=== PATIENT | male | born 1970 | race Caucasian/White ===

== ENCOUNTER 2024-04-25 14:34 | Outpatient (CLI) | payer OTHER, SELFPAY ==
--- NOTE | 2024-04-25 15:13 | ECHO_ITS ---
Patient Info Name: Laith Geiger Age: 53 years : 1970 Gender: Male Ht: 72 in Wt: 335 lbs BSA: 2.85 m2 HR: 71 bpm BP: 143 / 87 mmHg Technical Quality: Poor Exam Date: 04/25/2024 3:20 PM Exam Location: Echo Lab Patient Status: Outpatient Admit Date: 04/25/2024 Staff Ordering Physician: Venita Amaro Argon Tester: Mac Churchill RDCS Attending Provider: Ventia Amaro Referring Physician: Prem CLARK; Exam Type: CA echo dop color flow w con Study Info Indications - SOB/CARDIAC MURMUR Complete two-dimensional, color flow and Doppler transthoracic echocardiogram is performed with contrast to opacify the left ventricle and to improve the deliniation of the left ventricle endocardial borders. Contrast/Agitated Saline Contrast/Ag. Saline: Definity Amount: 2.00 ml Existing IV Access: Yes Reason for Poor Study: poor echocardiographic windows Summary 1. Technically suboptimal study due to poor sonographic images. 2. Definity contrast administered improved wall motion interpretation. 3. Left ventricular chamber dimension is normal. 4. Left ventricular systolic function is normal, estimated at 60-65%. 5. There is moderate concentric increased left ventricular wall thickness. 6. The left ventricular diastolic function is grade I diastolic dysfunction. 7. E/e' 5 is not elevated. 8. Left atrial chamber dimension is mildly enlarged. 9. The aortic valve is not well visualized. Cannot determine number of aortic valve leaflets. 10. There is mild aortic valve sclerosis. Left Ventricle Technically suboptimal study due to poor sonographic images. Definity contrast administered improved wall motion interpretation. E/e' 5 is not elevated. Left ventricular chamber dimension is normal. Left ventricular systolic function is normal, estimated at 60-65%. There is moderate concentric increased left ventricular wall thickness. The left ventricular diastolic function is grade I diastolic dysfunction. Right Ventricle Right ventricular systolic function is normal based on normal TAPSE 2.8 cm. Right ventricular chamber dimension is not well visualized. Left Atria Left atrial chamber dimension is mildly enlarged. Right Atria Right atrial chamber dimension is not well visualized. Aortic Valve The aortic valve is not well visualized. Cannot determine number of aortic valve leaflets. There is mild aortic valve sclerosis. There is no aortic valve stenosis. There is no aortic valve regurgitation. Pulmonic Valve There is no pulmonic regurgitation. Mitral Valve There is no mitral valve stenosis. There is no mitral valve regurgitation. Tricuspid Valve There is no tricuspid valve regurgitation. Pericardium/Pleural There is no pericardial effusion. Inferior Vena Cava Normal inferior vena cava with >50% collapse upon inspiration consistent with normal right atrial pressure, 5 mmHg. Aorta The aortic root size at the sinus of Valsalva is normal. Left Ventricular Outflow Tract Name Value Normal LVOT 2D LVOT Diameter 2.28 cm LVOT Doppler LVOT Peak Gradient 5 mmHg LVOT Mean Gradient 3 mmHg LVOT VTI 24.51 cm LVOT VTI/AV VTI Ratio 0.77 LVOT Stroke Volume 99.81 ml LVOT CO 7.18 l/min LVOT CI 2.52 L/min/m2 Pulmonic Valve Name Value Normal RVOT Doppler RVOT Peak Gradient 3 mmHg PV Doppler PV Peak Gradient 5 mmHg Mitral Valve Name Value Normal MV Doppler MV Decel Nuckolls 499.05 cm/s2 MV PHT 0 s MV Area (PHT) 7.00 cm2 4.00-5.00 MV Diastolic Function MV E Peak Velocity 54.12 cm/s MV A Peak Velocity 71.26 cm/s MV E/A 0.76 MV Decel Time 0 s MV Annular TDI MV E/e' (Septal) 6.02 <=8.00 MV E/e' (Lateral) 4.78 <=8.00 MV E/e' (Average) 5.40 Tricuspid Valve Name Value Normal Estimated PAP/RSVP RA Pressure 5 mmHg <=5 Aorta Name Value Normal Ascending Aorta Ao Root Diameter (MM) 4.00 cm Ao Root Diam Index (MM) 1.40 cm/m2 Aortic Valve Name Value Normal AV Doppler AV Peak Velocity 157.14 cm/s AV Peak Gradient 10 mmHg AV Mean Gradient 6 mmHg AV VTI 31.69 cm AV Area (Cont Eq VTI) 3.15 cm2 >=3.00 AV Area (Cont Eq Paul) 2.92 cm2 AV Regurgitation 2D LVOT Area 4.07 cm2 Ventricles Name Value Normal LV Dimensions 2D/MM IVS Diastolic Thickness (2D) 1.57 cm 0.60-1.00 LVID Diastole (2D) 5.46 cm 4.20-5.80 LVIW Diastolic Thickness (2D) 1.67 cm 0.60-1.00 LVID Systole (2D) 3.65 cm 2.50-4.00 LVOT Diameter 2.28 cm LV Mass (2D Cubed) 413.37 g 88.00-224.00 LV Mass Index (2D Cubed) 0.01 g/cm2 0.00-0.01 Relative Wall Thickness (2D) 0.61 LV Fractional Shortening/Ejection Fraction 2D/MM LV Fractional Shortening (2D) 32 % 25-43 LV EF (2D Teicholz) 59 % 52-72 LV Diastolic Volume (4C MOD) 63.84 ml LV EF (4C MOD) 59 % LV Diastolic Volume (2C MOD) 83.88 ml LV EF (2C MOD) 65 % LV Diastolic Volume (BP MOD) 74.49 ml 62.00-150.00 LV Diastolic Volume Index (BP MOD) 0.03 l/m2 0.03-0.07 LV Systolic Volume (BP MOD) 27.79 ml 21.00-61.00 LV Systolic Volume Index (BP MOD) 0.01 l/m2 0.01-0.03 LV EF (BP MOD) 63 % 52-72 LV Diastolic Length (4C) 8.27 cm LV Systolic Length (4C) 6.84 cm LV Stroke Volume (4C MOD) 37.39 ml Atria Name Value Normal LA Dimensions LA Dimension (MM) 3.85 cm 3.00-4.10 Report Signatures
[2024-04-25] MEDS: PERFLUTREN LIPID MICROSPHERES 1.5 ML VIAL DILUTED TO 10 ML TOTAL VOLUME IV PUSH (15:55)
--- NOTE | 2024-04-25 16:25 | IVDEFINITY ---
Prior to administration of IV Definity the patient was educated on the risks and benefits of the imaging enhancing agent including potential adverse side effects. The patient verbalized understanding. Allergies were verified. No exclusion criteria were identified and at least one of the following inclusion criteria were met: 1) physician request, 2) patient technically difficult to image (per the [place] [employer]ocardi[employer] guidelines of two or more segments not discernable within the apical view), or 3) questionable left ventricular function. ?
== END 2024-04-25 14:35 | disposition home or self-care (01) ==
LOC: ANHCARD 14:35
PROVIDERS: PCP Nurse Practitioner Family; Visit Provider Nurse Practitioner Family
DX: R01.1 Cardiac murmur, unspecified (principal); I51.89 Other ill-defined heart diseases; I35.8 Other nonrheumatic aortic valve disorders
CPT/HCPCS: C8929; Q9957

== ENCOUNTER 2024-06-14 00:11 | Day surgery (SDC) | payer OTHER, SELFPAY ==
[2024-06-05 09:04] VITALS: BMI 46.0
[2024-06-14 08:47] VITALS: BP 161/89; PULSE 77; RESP 20; TEMP 35.9; O2SAT 99; BMI 46.5
[2024-06-14] MEDS: LACTATED RINGERS 1,000 ML 150 ML IV CONT (08:59)
--- NOTE | 2024-06-14 09:13 | PM.HPGS ---
History of Present Illness History of Present Illness Consent: Risks, benefits, and alternatives have been discussed and questions answered. Patient agrees to proceed with procedure. Chief complaint: screening malignat neoplasm colon Narrative: Laith Geiger is a 53 year old male here for first screening colonoscopy Review of Systems Review of Systems: All systems reviewed & are unremarkable except as noted in HPI and below PMFSH Past Medical History Medical History (Updated 06/14/24 @ 09:13 by Jonny Mansfield MD) Colon cancer screening Hypertension Dyslipidemia Insomnia Surgical History Surgical History History of skin surgery (2021) front of head; misdiagnosed with melanoma Family History Family History Father Alcoholism Hypertension Mother Depression Diabetes mellitus Hypertension Sibling Diabetes mellitus Alcoholism Hypertension Depression Grandparent Heart disease Hypertension Social History Social History Social History: 03/25/24 very confident with medical forms Smoking status: Never smoker Alcohol intake: current Drinks per week: 7 Alcohol use details: bourbon/wine Substance use: never Substance use type: does not use Do You Feel Safe in your Home?: Yes Lack of Transportation: No Lack of Food: Never True Current Housing: I Have Housing Concerned About Future Housing: No Difficulty Paying Gas/Electric Bills: No Difficulty Paying for Meds: No Currently Unemployed: No Education: High School Diploma/GED Difficulty w/ Childcare or Family Care: No Living arrangements: with family Occupation/Education: occupation 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 Agree to blood products: No Meds Home Medications and Allergies Home Medications ?Medication ?Instructions ?Recorded ?Confirmed ?Type amlodipine 5 mg tablet See Rx Instructions .Route 05/29/24 06/14/24 Rx .COMPLEX #90 tabs olmesartan 20 See Rx Instructions .Route 05/29/24 06/14/24 Rx mg-hydrochlorothiazide 12.5 mg .COMPLEX #90 tabs tablet Blood flow 7 (nitric oxide) 1 tablet BYMOUTH DAILY 06/05/24 06/14/24 History Unknown Medication See Rx Instructions .Route .COMPLEX 06/05/24 06/05/24 History calcium phosphate,dibasic 77 1 tablet PO DAILY 06/05/24 06/14/24 History mg-vitamin D3 400 unit tablet tirzepatide (weight loss) 2.5 2.5 mg subcut WEEKLY 06/05/24 06/05/24 History mg/0.5 mL subcutaneous pen injector Allergies Allergy/AdvReac Type Severity Reaction Status Date / Time amoxicillin (From Amoxil) Allergy Unknown shortness Verified 06/14/24 08:45 of breath Penicillins Allergy Unknown lung Verified 06/14/24 08:45 swelling levofloxacin (From Levaquin) Allergy Unknown Verified 06/14/24 08:45 Vital Signs Vital Signs - 24 hr 06/14/24 08:47 Temperature 96.7 F L Pulse Rate 77 Respiratory Rate 20 Blood Pressure 161/89 H Pulse Oximetry 99 Oxygen Delivery Room Air Exam Const: General: comfortable and no acute distress Nutritional Appearance: obese Orientation/consciousness: patient oriented x3 HENMT: Face/Nose/Sinus: Normal nares present Eyes: General: appearance normal, both eyes and all related structures Neck: Neck: no JVD Resp: Auscultation: clear to auscultation bilaterally Cardio: Rate: regular rate Rhythm: regular rhythm GI: Inspection: non-distended GI Palp: Yes Soft to palpation Skin: General skin exam: normal color Neuro: General: gait normal Speech: normal speech Extrem: General: normal to inspection Psych: Mental Status: mental status grossly normal Assessment and Plan Assessment and plan (1) Colon cancer screening: Code(s): Z12.11 - Encounter for screening for malignant neoplasm of colon Status: Acute Assessment and Plan: colonoscopy
--- NOTE | 2024-06-14 09:16 | WPDANESEPPF ---
Anes - Initial Pre Proc Eval Procedure: Operation Date: 06/14/24 10:00 Proposed Procedures p Screening Colonoscopy - Jonny Mansfield MD Date/Time: 06/14/24 09:16 Surgeon: Jonny Mansfield MD Pre Op Diagnosis: screening malignat neoplasm colon Patient Data Age: 53 Gender: M Height: 1.8 m Weight: 151.4 kg Last Vital Signs Temp 96.7 F L 06/14/24 08:47 Pulse 77 06/14/24 08:47 Resp 20 06/14/24 08:47 BP 161/89 H 06/14/24 08:47 Pulse Ox 99 06/14/24 08:47 O2 Del Method Room Air 06/14/24 08:47 Allergies Allergy/AdvReac Type Severity Reaction Status Date / Time amoxicillin (From Amoxil) Allergy Unknown shortness Verified 06/14/24 08:45 of breath Penicillins Allergy Unknown lung Verified 06/14/24 08:45 swelling levofloxacin (From Levaquin) Allergy Unknown Verified 06/14/24 08:45 Home Medications ?Medication ?Instructions ?Recorded ?Confirmed ?Type amlodipine 5 mg tablet See Rx Instructions .Route 05/29/24 06/14/24 Rx .COMPLEX #90 tabs olmesartan 20 See Rx Instructions .Route 05/29/24 06/14/24 Rx mg-hydrochlorothiazide 12.5 mg .COMPLEX #90 tabs tablet Blood flow 7 (nitric oxide) 1 tablet BYMOUTH DAILY 06/05/24 06/14/24 History Unknown Medication See Rx Instructions .Route .COMPLEX 06/05/24 06/05/24 History calcium phosphate,dibasic 77 1 tablet PO DAILY 06/05/24 06/14/24 History mg-vitamin D3 400 unit tablet tirzepatide (weight loss) 2.5 2.5 mg subcut WEEKLY 06/05/24 06/05/24 History mg/0.5 mL subcutaneous pen injector Patient hx anesthesia problems: none Family hx anesthesia problems: none Results Review: All pre-operative results and documents have been reviewed as part of the pre-operative evaluation. [facility] Past Medical History Medical History Colon cancer screening Hypertension Dyslipidemia Insomnia Surgical History Surgical History History of skin surgery (2021) front of head; misdiagnosed with melanoma Family History Family History Father Alcoholism Hypertension Mother Depression Diabetes mellitus Hypertension Sibling Diabetes mellitus Alcoholism Hypertension Depression Grandparent Heart disease Hypertension Social History Social History Social History: 03/25/24 very confident with medical forms Smoking status: Never smoker Alcohol intake: current Drinks per week: 7 Alcohol use details: bourbon/wine Substance use: never Substance use type: does not use Do You Feel Safe in your Home?: Yes Lack of Transportation: No Lack of Food: Never True Current Housing: I Have Housing Concerned About Future Housing: No Difficulty Paying Gas/Electric Bills: No Difficulty Paying for Meds: No Currently Unemployed: No Education: High School Diploma/GED Difficulty w/ Childcare or Family Care: No Living arrangements: with family Occupation/Education: occupation 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 HTN, hyperlipidemia, sleep study pending. Pt has been off GLP1 since 05/14. Informed Consent: The patient's anesthetic plan and its attendant risks and benefits were discussed with the patient/family/POA. Questions were solicited and answers provided to the satisfaction of the patient/family/POA.
[2024-06-14 09:33] VITALS: BP 112/68; PULSE 76; RESP 22; O2SAT 97
[2024-06-14 09:43] VITALS: BP 100/62; PULSE 60; RESP 18; O2SAT 98
[2024-06-14 09:53] VITALS: BP 111/78; PULSE 65; RESP 18; O2SAT 98
== END 2024-06-14 10:05 | disposition home or self-care (01) ==
PROVIDERS: PCP Nurse Practitioner Family; Visit Provider Internal Medicine Gastroenterology
PROC: 0DJD8ZZ Inspection of Lower Intestinal Tract, Via Natural or Artificial Opening Endoscopic (ICD-10-PCS; CPT 45378; principal; 2024-06-14 10:00)
DX: Z12.11 Encounter for screening for malignant neoplasm of colon (principal); D12.4 Benign neoplasm of descending colon; K64.8 Other hemorrhoids; I10 Essential (primary) hypertension; E78.5 Hyperlipidemia, unspecified; G47.00 Insomnia, unspecified; E66.01 Morbid (severe) obesity due to excess calories; Z68.42 Body mass index [BMI] 45.0-49.9, adult; Z79.85 Long-term (current) use of injectable non-insulin antidiabetic drugs; Z98.890 Other specified postprocedural states; Z82.49 Family history of ischemic heart disease and other diseases of the circulatory system
CPT/HCPCS: 45385; 88305; J2003; J2704; J7120

== ENCOUNTER 2024-07-14 16:49 | Emergency (ER) | payer OTHER, SELFPAY ==
--- OUTSIDE RECORDS SUMMARY | 2024-07-14 17:00 | XMS_ITS | Clinical Summary ---
Author Organization [facility] Address [address] [address] Care Team Providers Care Physician Assistant Name Role Phone Alfonso Cortez MD Primary Care Provider [phone] Source Comments [facility],non-owned Affiliates and Associated Physician Practices is amultiple site organization consisting of ambulatory clinics and hospital sitesin [place], [place], [place] and [place]. This disclosure is being madepursuant to the Care Everywhere program and may not contain all information available regarding this patient. Last updated 18.[facility] Allergies Active Allergy Reactions Criticality Noted Date Comments Penicillins Anaphylaxis High 08/09/2021 Sulfa Drugs Anaphylaxis,Rash High 08/23/2021 Medications * Be aware that medications may not be up to date on this document. Alwaysverify current medications with the patient. Medication Sig Dispensed Refills Start Date End Date Status amLODIPine (NORVASC) 5 MG tablet Take 5 mg by mouth once daily 02/24/2021 Active clotrimazole-betameth asone (LOTRISONE) 1-0.05 % cream APPLY TOPICALLY TO THE AFFECTED AREA TWICE DAILY 02/24/2021 Active olmesartan-hydroCHLOR Othiazide (BENICAR HCT) 20-12.5 MG tablet Take 1 tablet by mouth once daily 02/24/2021 Active traZODone (DESYREL) 100 MG tablet Take 100 mg by mouth at bedtime 02/24/2021 Active baclofen (LIORESAL) 10 MG tablet TAKE 1 TABLET BY MOUTH THREE TIMES DAILY FOR SPASMS 12/25/2020 Active metroNIDAZOLE (FLAGYL) 500 MG tablet Take 500 mg by mouth 3 times daily For 7 days. 01/08/2021 Active predniSONE (DELTASONE) 10 MG tablet 12/25/2020 Active traMADol (ULTRAM) 50 MG tablet TAKE 1 TABLET BY MOUTH THREE TIMES DAILY NEEDED FOR SEVERE PAIN 12/25/2020 Active Active Problems Problem Noted Date Diagnosed Date Basal cell carcinoma (BCC) of scalp 08/09/2021 Family History Medical History Relation Name Comments Diabetes - Type 2 Mother Cancer - Breast Sister 1 Diabetes - Type 2 Sister 2 Relation Name Status Comments Mother Sister 1 Sister 2 Social History Tobacco Use Types Packs/Day Years Used Date Smoking Tobacco: Never Smokeless Tobacco: Never Tobacco Cessation:Counseling Given: No Alcohol Use Standard Drinks/Week Comments Yes 0 (1 standard drink = 0.6 oz pur e alcohol) socially Sex and Gender Information Value Date Recorded Sex Assigned at Not on file Gender Identity Not on file Sexual Orientation Not on file Last Filed Vital Signs Vital Sign Reading Time Taken Comments Blood Pressure 149/89 02/28/2022 9:50 AM CDT Pulse 64 02/28/2022 9:50 AM CDT Temperature 36.8 C (98.2 F) 09/06/2021 9:23 AM CDT Respiratory Rate - - Oxygen Saturation 99% 02/28/2022 9:50 AM CDT Inhaled Oxygen Concentration - - Weight 149.2 kg (329 lb) 02/28/2022 9:50 AM CDT Height 182.9 cm (6') 02/28/2022 9:50 AM CDT Body Mass Index 44.62 02/28/2022 9:50 AM CDT Plan of Treatment Health Maintenance Due Date Last Done Comments COLOGUARD (AGES 45-75) - COL ON CA SCREENING 1970 COLON MONITORING 1970 COLONOSCOPY - COLON CA SCREENING 1970 CT COLONOGRAPHY - COLON CA SCREENING 1970 Colorectal Cancer Screening 1970 FIT - COLON CA SCREENING 1970 FLEX SIG - COLON CA SCREENING 1970 LIPID TESTING 1970 HIV SCREENING 10/20/1987 HEPATITIS C SCREENING 10/15/1990 DTAP/TDAP/TD VACCINES (1 - Tdap) 10/20/1991 HEPATITIS B VACCINE (1 of 3 - 19+ 3-dose series) 10/20/1991 PNEUMOCOCCAL VACCINE 50+ (1 of 1 - PCV) 2022 ZOSTER VACCINE (1 of 2) 2022 COVID-19 VACCINE (1 - 2023-2 5 season) 2024 INFLUENZA VACCINE (#1) 2024 DEPRESSION SCREENING 05/22/2024 SCREENING FOR DIABETES 08/09/2024 08/09/2021 HIB VACCINE Aged Out No longer eligi ble based on patient's age to complete this topic HPV VACCINE Aged Out No longer eligi ble based on patient's age to complete this topic MENINGOCOCCAL (Group B) VACCINE Aged Out No longer eligible based on patient's age to complete this topic MENINGOCOCCAL VACCINE Aged Out No jos solo eligible based on patient's age to complete this topic PNEUMOCOCCAL VACCINE Aged Out No long er eligible based on patient's age to complete this topic Procedures Procedure Name Priority Date/Time Associated Diagnosis Comments COMPREHENSIVE METABOLIC PANEL 08/09/2021 10:18 AM CDT from Last 3 Months or Most Recently Relevant to Health Maintenance Results * (ABNORMAL) COMPREHENSIVE METABOLIC PANEL (08/09/2021 10:18 AM CDT) Glucose 101(H) 65 - 99 mg/dL [facility] INSURANCE BILL BUN 15 6 - 24 mg/dL [facility]UR[facility] BILL Creatinine 0.86 0.76 - 1.27 mg/dL [facility] INSURANCE BILL eGFR by CKD-EPI 107 >59 mL/min/1.7 3 [facility] INSURANCE BILL BUN/Creatinine Ratio 17 9 - 20 [facility] INSURANCE BILL Sodium 142 134 - 144 mmol/L [facility] INSURANCE BILL Potassium 4.3 3.5 - 5.2 mmol/L [facility] INSURANCE BILL Chloride 103 96 - 106 mmol/L [facility] INSURANCE BILL CO2 23 20 - 29 mmol/L [facility] INSURANCE BILL Calcium 9.5 8.7 - 10.2 mg/dL [facility] INSURANCE BILL Protein Total 7.0 6.0 - 8.5 g/dL [facility] INSURANCE BILL Albumin 4.7 4.0 - 5.0 g/dL [facility] INSURANCE BILL Globulin Total 2.3 1.5 - 4.5 g/dL [facility] INSURANCE BILL Albumin/Globulin Ratio 2.0 1.2 - 2.2 [facility] INSURANCE BILL Bilirubin Total 0.7 0.0 - 1.2 mg/dL [facility] INSURANCE BILL Alkaline Phosphatase 74 44 - 121 IU/L [facility] INSURANCE BILL AST 19 0 - 40 IU/L [facility] INSURANCE BILL ALT 26 0 - 44 IU/L [facility] INSURANCE BILL 08/09/2021 10:1 8 AM CDT 08/09/2021 Narrative Resulting Agency Comment Lab Testing performed at: [facility] [place] [address] [id number] Ramin Mcgowan MD LAB - CHEMISTRY RACHANA HARRIS [facility] INSURANCE BILL [address] [place] [address] from Last 3 Months or Most Recently Relevant to Health Maintenance Care Teams Physician Assistant Relationship Specialty Start Date End Date Alfonso Cortez MD [facility] [place] [address] [place] [id number] PCP - General Internal Medicine 08/09/21
--- OUTSIDE RECORDS SUMMARY | 2024-07-14 17:00 | XMS_ITS | Continuity of Care Document ---
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 Role Phone Evelyn DIETZ, Lanette Unavailable Unavailable Allergies, Adverse Reactions, Alerts Substance Reaction Status Criticality TAPE, OCCLUSIVE ADHESIVE Active No Information Medications Medication Instructions Dosage Effective Dates (start - stop) Status Comments ursodiol 300 mg capsule TAKE 1 CAPSULE BY ORAL ROUTE 2 TIMES EVERY DAY 300 MG - Active nystatin 100,000 unit/gram topical powder apply by topical route 2 times every day to the affected area(s) 0.00 - Active Lomaira 8 mg tablet take 1 tablet by oral route every day 1/2 hour before meals 8 MG - No Longer Active Procedures Procedure Date OFFICE/OUTPT EM EST DETAILED/MODERATE 25 MINS OFFICE/OUTPT EM EST EXP PROB FOCUS/LOW 1 5 MINS OFFICE/OUTPT EM EST DETAILED/MODERATE 25 MINS IMMUNIZATION ADMIN SUBQ/IM 1 VACCINE Feb OFFICE/OUTPT EM EST DETAILED/MODERATE 25 MINS INFLUENZA VACCINE CELL CULT PRSRV FREE I M OFFICE/OUTPT EM EST DETAILED/MODERATE 25 MINS OFFICE/OUTPT EM EST DETAILED/MODERATE 25 MINS OFFICE/OUTPT EM EST EXP PROB FOCUS/LOW 1 5 MINS ABSCESS DRAIN INCISE COMPLICATED/MULTIPL E OFFICE/OUTPT EM EST DETAILED/MODERATE 25 MINS OFFICE/OUTPT EM EST DETAILED/MODERATE 25 MINS OFFICE/OUTPT EM EST DETAILED/MODERATE 25 MINS ECHO TRANSTHORACIC R-T 2D COMP W/DOP&COL OR FLOW ELECTROCARDIOGRAM COMPLETE W/ PHYS INTER P & REPORT OFFICE/OUTPT CONSULT EM COMPREH/HIGH 80 MINS Advance Directives Directive Yes / No Effective Date File Name No Information Encounters Encounter Description Practice Location Reason(s) For Visit Diagnoses Date Provider Providers Copied on Encounter OFFICE/OUTPT EM EST DETAILED/MOD ERATE 25 MINS [id number] - [employer], [address] [facility] [address], [place], [address], tel: [phone] [facility] Evie Beata 2 Obesity (chief complaint) Hypertensi on (chief complaint) Metabolic syndromeEssential (primary) hypertensionHyper glycemiaMixed hyperlipidemiaFat ty liverObstructive sleep apneaMixed disorder as reaction to stressElectrolyte and fluid disorderObesity, Class III, BMI 40-49.9 (morbid obesity)Dietary counseling and surveillanceExerc ise counselingEncount er for long-term (current) use of medicationsBody mass index (BMI) 40.0-44.9, adult 7 Evelyn Gama. [address] [facility] [address], [place], [place], [address]. [phone] Referring Provider: Lanette Carrillo, [address] [facility] [address], [place], [address] . tel:[phone] [id number] - [employer], [address] [facility] [address], [place], [address], tel: [phone] [facility] Evie Beata 2 No Information 7 Evelyn Gama. [address] [facility] [address], [place], [place], [address]. tel:[phone] OFFICE/OUTPT EM EST EXP PROB FOCUS/LOW 15 MINS [id number] - [place] [employer], [address] [facility] [address], [place], [address], tel: [phone] P[facility] Evie Beata 2 Obesity (chief complaint) Hypertensi on (chief complaint) Metabolic syndromeRashEssen tial (primary) hypertensionHyper glycemiaMixed hyperlipidemiaFat ty liverObstructive sleep apneaPlantar fasciitis of right footMixed disorder as reaction to stressElectrolyte and fluid disorderObesity, Class III, BMI 40-49.9 (morbid obesity)Body mass index (BMI) 40.0-44.9, adultDietary counseling and surveillanceExerc ise counselingEncount er for long-term current use of medication Evelyn Gama. [address] [address], [place], [place], [id number]. [phone] Referring Provider: Lanette Carrillo, [address] [address], [place], [address] . tel:[phone] OFFICE/OUTPT EM EST DETAILED/MOD ERATE 25 MINS [id number] - [facility] [email or web address], [address] [facility] [address], [place], [address], tel: [phone] PMS Evie Beata 2 Obesity (chief complaint) Hypertensi on (chief complaint) Body mass index (BMI) 40.0-44.9, adultDietary counseling and surveillanceElect rolyte and fluid disorderEssential (primary) hypertensionExerc ise counselingFatty liverHyperglycemi aMetabolic syndromeMixed disorder as reaction to stressMixed hyperlipidemiaObe sity, Class III, BMI 40-49.9 (morbid obesity)Obstructi ve sleep apneaPlantar fasciitis of right footEncounter for long-term current use of medicationRash 6 Evelyn Gama. [address] [facility] [address], [place], [place], [id number]. tel:[phone] Referring Provider: Lanette Carrillo, [address], [place], [address] . tel:[phone] OFFICE/OUTPT EM EST DETAILED/MOD ERATE 25 MINS [id number] - [facility], [address] [facility] [address], [place], [address], tel: [phone] [facility] Evie Beata 2 Obesity (chief complaint) Dietary counseling and surveillanceElect rolyte and fluid disorderEssential (primary) hypertensionExerc ise counselingFatty liverHyperglycemi aMetabolic syndromeMixed disorder as reaction to stressMixed hyperlipidemiaObs tructive sleep apneaOther intermediate teacher (current) drug therapyBody mass index (BMI) 40.0-44.9, adultPlantar fasciitis of right footObesity, Class III, BMI 40-49.9 (morbid obesity)Influenza vaccination administered at current visit 6 Evelyn Gama. [address] [address], [place], [place], [id number]. tel:[phone] Referring Provider: Lanette Carrillo, [address] [address], [place], [address] . tel:[phone] OFFICE/OUTPT EM EST DETAILED/MOD ERATE 25 MINS [id number] - [facility] [employer], [address] [facility] [address], [place], [address], tel: [phone] [facility] Evie Beata 2 Obesity (chief complaint) hypertensi on (chief complaint) Body mass index (BMI) 38.0-38.9, adultMetabolic syndromeFatty liverEssential hypertensionMixed hyperlipidemiaObs tructive sleep apneaElectrolyte and fluid disorderDietary counseling and surveillanceExerc ise counseling 6 Evelyn Gama. [address] [facility] [address], [place], [place], [address]. [phone] Referring Provider: Lanette Carrillo, [address] [facility] [address], [place], [address] . tel:[phone] OFFICE/OUTPT EM EST DETAILED/MOD ERATE 25 MINS [id number] - [facility] [email or web address], [address] [facility] [address], [place], [address], [place] tel:[phone] PMS Evie Beata 2 Obesity (chief complaint) hypertensi on (chief complaint) Body mass index (BMI) 39.0-39.9, adultMetabolic disorderHyperglyc emiaFatty liverMixed hyperlipidemiaEss ential (primary) hypertensionObesi ty, Class II, BMI 35.0-39.9, with comorbidity (see actual BMI)Dietary counselingExercis e counselingElectro lyte and fluid disorder 9-201 6 Leloshy Lanette. [address] [facility], [place], [place], [address]. tel:[phone] Referring Provider: Lanette Carrillo, [facility] [address] [address], [place], [address] . tel:[phone] OFFICE/OUTPT EM EST EXP PROB FOCUS/LOW 15 MINS [id number] - [place] [email or web address], [address] [facility] [address], [place], [address], [phone] PMS Evie Beata 2 skin lesion (chief complaint) Cutaneous abscess of back excluding buttocksCelluliti s of back except buttockBody mass index (BMI) 39.0-39.9, adult -201 6 Desiraerocky Marre[employer]so[employer]ail. [address] [facility], [place], [place], [address]. tel:[phone] Referring Provider: Lanette Carrillo, [address] [facility] [address], [place], [address] . tel:[phone] OFFICE/OUTPT EM EST DETAILED/MOD ERATE 25 MINS [id number] - [facility], [address] [facility] [address], [place], [address], [place] [phone] PMS Evie Beata 2 obesity (chief complaint) skin lesion (chief complaint) Mixed hyperlipidemiaFat ty liver disease, nonalcoholicOther disorders of electrolyte and fluid balance, not elsewhere classifiedObesity (BMI 35.0-39.9 without comorbidity)Dieta ry counseling and surveillanceExerc ise counselingBody mass index (BMI) 39.0-39.9, adultHyperglycemi aMetabolic syndromeCutaneous abscess of back excluding buttocks 6 Evelyn Gama. [address] [facility] [address], [place], [place], [address]. [phone] Referring Provider: Lanette Carrillo, [address] [facility] [address], [place], [address] . tel:[phone] OFFICE/OUTPT EM EST DETAILED/MOD ERATE 25 MINS [id number] - [facility] [email or web address], [address] [facility] [address], [place], [address], [place] tel: [phone] PMS Evie Beata 2 Obesity (chief complaint) Insulin resistanceDietary surveillance and counselingExercis e counselingFatty liver disease, nonalcoholicMetab olic disorderMixed hyperlipidemiaOth disorders of electrolyte and fluid balance, NECBody mass index (BMI) 39.0-39.9, adultObesity, Class II, BMI 35-39.9 6 Clarence Ramirez. [address] [facility] [address], [place], [place], [address]. tel:[phone] Referring Provider: Ashley Curran, [address] [facility] [address], [place], [address] . tel:[phone] OFFICE/OUTPT EM EST DETAILED/MOD ERATE 25 MINS [id number] - [employer], [address] [facility] [address], [place], [address], [place] tel: [phone] PMS Evie Beata 2 obesity (chief complaint) hypertensi on (chief complaint) Body mass index (BMI) 40.0-44.9, adultMetabolic syndromeEssential (primary) hypertensionMixed hyperlipidemiaAbn ormal finding on EKGMixed disorder as reaction to stressElectrolyte and fluid disorderObesity, Class III, BMI 40-49.9 (morbid obesity)Dietary counseling and surveillanceExerc ise counselingFatty liver 6 Evelyn Marrerosohail. [address] [address], [place], [place], [address]. [phone] Referring Provider: Lanette Carrillo, [facility] [address] [address], [place], [address] . tel:[phone] [id number] - [facility] [employer], [address], [address], tel: [phone] [facility] No Information [address] [facility], [address], [place], [place], [address]. [phone] Referring Provider: Lanette Carrillo, [facility] [address] [address], [place], [address] . tel:[phone] OFFICE/OUTPT CONSULT EM COMPREH/HIGH 80 MINS [id number] - [place] [facility] [employer], [address] [address], [place], [address], [place] tel: [phone] [facility] Evie Beata 2 obesity (chief complaint) Body mass index (BMI) 40.0-44.9, adultElectrolyte and fluid disorderObesity, Class III, BMI 40-49.9 (morbid obesity)Dietary counseling and surveillanceExerc ise counselingOther assisted (current) drug therapyMetabolic syndromeEssential hypertensionMixed hyperlipidemiaAbn ormal finding on EKGObstructive sleep apneaMixed disorder as reaction to stress 6 Desiraerocky Lanette. [address] [address], [place], [place], [address]. tel:[phone] Referring Provider: Ashley Curran, [facility] [address] [address], [place], [address] . tel:[phone] Family History Family Member Type Diagnosis Age At Onset Paternal grandfather Problem (finding) prostate cancer Mother Problem (finding) raised blood lipids Mother Problem (finding) Obesity Brother Problem (finding) hypertension Mother Problem (finding) depression Father Problem (finding) alcoholism Maternal grandmother Problem (finding) raised blood li pids Sister Problem (finding) raised blood lipids Father Problem (finding) stroke Sister Problem (finding) Obesity Paternal grandmother Problem (finding) alzheimer's dis ease Paternal grandmother Problem (finding) hypertension Father Problem (finding) coronary arterioscleros is Brother Problem (finding) raised blood lipids Father Problem (finding) hypertension Mother Problem (finding) hypertension Immunizations Vaccine Date Status Comments Influenza, injectable, MDCK, preservative free Flucelvax administered Source: New Immuniza tion Record Payers Payer name Insurance type Covered libertarian ID Authoriza tion(s) [facility] CI [id number] [facility] CI [id number] Social History Type Description Quantity Date Captured Comments Alcohol Use Details beer & wine 2 drinks weekly 7 Caffeine Use Details No Tobacco Use Status Never smoked tobacco 2016 Smoking Status Never smoker Non-Smoking Tobacco Use Details : No Details Available : No Details Available Sex Male Chief Complaint And Reason For Visit From encounter dated '08/05/2016 08:30'. Obesity (chief complaint). Description: , Date of First Bariatric Visit: 12/28/2015. The severity of the problem is moderate. The patient is losing weight. Risk factors include annual weight gain of > 2 lbs (1kg) / year and socioeconomic status. Associated conditions include hyperlipidemia, hypertension, sleep apnea, , and hyperglycemia. Aggravating factors include high fat diet and stress. Symptoms are not relieved by diet(s) and exercise. Associated symptoms include anorexia, anxiety,cold intolerance, generalized weakness and striae. Pertinent negatives include abdominal pain, anhidrosis, constipation, depression, delayed development, facial plethora, fatigue, hair loss, headache, hirsutism, hoarseness, lethargy, low self-esteem, paresthesias or vision changes. Additional information: See attached symptom sheet. Hypertension (chief complaint). Description: The symptoms began gradually. The severity has been described as being 5. Risk factors include family history HTN, gout or CAD, male gender, obesity and sleep apnea. The hypertension is exacerbated by anxiety and stress. Pertinent negatives include chestpain, claudication, diaphoresis, dyspnea, fatigue, headache, hematuria, irregular heartbeat/palpitations, nausea, transient weakness and vomiting. Reason For Referral Reason For Referral No Information Plan Of Treatment Date Type Action Status Patient Education Body Mass Index: Care I nstructions completed Patient Education Body Mass Index: Care I nstructions completed Patient Education Body Mass Index: Care I nstructions completed Patient Education Body Mass Index: Care I nstructions completed Patient Education Diet and Exercise for Roro Christiero completed Patient Education Diet and Exercise for Roro torresboalisha Syndro completed Patient Education Diet and Exercise for Roro torresboalisha Christiero completed History Of Present Illness Encounter Date Complaint History Of Prese nt Illness Obesity (comments) Pt has gained 7 lbs since his last visit. Hypertension (comments) BP has i ncreased since his last visit. Obesity , Date of First Bariatric Visit: 12/28/2015. The severity of the problem is moderate. The patient is losing weight. Risk factors include annual weight gain of > 2 lbs (1kg) / year and socioeconomic status. Associated conditions include hyperlipidemia, hypertension, sleep apnea, , and hyperglycemia. Aggravating factors include high fat diet and stress. Symptoms are not relieved by diet(s) and exercise. Associated symptoms include anorexia, anxiety, cold intolerance, generalized weakness and striae. Pertinent negatives include abdominal pain, anhidrosis, constipation, depression, delayed development, facial plethora, fatigue, hair loss, headache, hirsutism, hoarseness, lethargy, low self-esteem, paresthesias or vision changes. Additional information: See attached symptom sheet. Hypertension The symptoms beg an gradually. The severity has been described as being 5. Risk factors include family history HTN, gout or CAD, male gender, obesity and sleep apnea. The hypertension is exacerbated by anxiety and stress. Pertinent negatives include chest pain, claudication, diaphoresis, dyspnea, fatigue, headache, hematuria, irregular heartbeat/palpitations, nausea, transient weakness and vomiting. Obesity , Date of First Bariatric Visit: 12/28/2015. The severity of the problem is moderate. The patient is losing weight. Risk factors include annual weight gain of > 2 lbs (1kg) / year and socioeconomic status. Associated conditions include hyperlipidemia, hypertension, sleep apnea, , and hyperglycemia. Aggravating factors include high fat diet and stress. Symptoms are not relieved by diet(s) and exercise. Associated symptoms include anorexia, anxiety, cold intolerance, generalized weakness and striae. Pertinent negatives include abdominal pain, anhidrosis, constipation, depression, delayed development, facial plethora, fatigue, hair loss, headache, hirsutism, hoarseness, lethargy, low self-esteem, paresthesias or vision changes. Additional information: See attached symptom sheet. Hypertension The symptoms beg an gradually. The severity has been described as being 5. Risk factors include family history HTN, gout or CAD, male gender, obesity and sleep apnea. The hypertension is exacerbated by anxiety and stress. Pertinent negatives include chest pain, claudication, diaphoresis, dyspnea, fatigue, headache, hematuria, irregular heartbeat/palpitations, nausea, transient weakness and vomiting. Obesity (comments) Pt lost 3 lbs since last visit. Hypertension (comments) BP has d ecreased since last visit. Obesity , Date of First Bariatric Visit: 12/28/2015. The severity of the problem is moderate. The patient is losing weight. Risk factors include annual weight gain of > 2 lbs (1kg) / year and socioeconomic status. Associated conditions include hyperlipidemia, hypertension, sleep apnea, , and hyperglycemia. Aggravating factors include high fat diet and stress. Symptoms are not relieved by diet(s) and exercise. Associated symptoms include anorexia, anxiety, cold intolerance, generalized weakness and striae. Pertinent negatives include abdominal pain, anhidrosis, constipation, depression, delayed development, facial plethora, fatigue, hair loss, headache, hirsutism, hoarseness, lethargy, low self-esteem, paresthesias or vision changes. Additional information: See attached symptom sheet. Obesity (comments) Pt has lost 1 .75 lbs since his last visit Hypertension (comments) BP has i ncreased since his last visit Hypertension The symptoms beg an gradually. The severity has been described as being 5. Risk factors include family history HTN, gout or CAD, male gender, obesity and sleep apnea. The hypertension is exacerbated by anxiety and stress. Pertinent negatives include chest pain, claudication, diaphoresis, dyspnea, fatigue, headache, hematuria, irregular heartbeat/palpitations, nausea, transient weakness and vomiting. Obesity , Date of First Bariatric Visit: 12/28/2015. The severity of the problem is moderate. The patient is losing weight. Risk factors include annual weight gain of > 2 lbs (1kg) / year and socioeconomic status. Associated conditions include hyperlipidemia, hypertension, sleep apnea, , and hyperglycemia. Aggravating factors include high fat diet and stress. Symptoms are not relieved by diet(s) and exercise. Associated symptoms include anorexia, anxiety, cold intolerance, generalized weakness and striae. Pertinent negatives include abdominal pain, anhidrosis, constipation, depression, delayed development, facial plethora, fatigue, hair loss, headache, hirsutism, hoarseness, lethargy, low self-esteem, paresthesias or vision changes. Additional information: See attached symptom sheet. Obesity (comments) Pt has gained 14 lbs since his last visit Obesity , Date of First Bariatric Visit: 11/14/2014. The severity of the problem is moderate. The patient is losing weight. Associated conditions include hyperlipidemia and hypertension. Associated symptoms include constipation and fatigue. Pertinent negatives include abdominal pain, anxiety, cold intolerance, depression, headache, hirsutism or vision changes. Obesity (comments) He has been l osing weight. He lost approximately 11. 65 lbs hypertension Risk factors inc lude male gender. Associated symptoms include fatigue. Pertinent negatives include chest pain, claudication, diaphoresis, dyspnea, headache, hematuria, irregular heartbeat/palpitations, nausea and vomiting. Obesity Risk factors inc lude annual weight gain of > 2 lbs (1kg) / year and socioeconomic status. Associated conditions include hyperlipidemia. The patient denies aggravating factors such as recent marriage. Relieving factors include diet(s) and exercise. Associated symptoms include anxiety and fatigue. Pertinent negatives include abdominal pain, cold intolerance, constipation, depression, generalized weakness, headache, hirsutism, lethargy or vision changes. hypertension Risk factors inc lude male gender. Associated symptoms include fatigue. Pertinent negatives include chest pain, claudication, diaphoresis, dyspnea, headache, hematuria, irregular heartbeat/palpitations, nausea and vomiting. skin lesion The problem is m ild. Area(s) of concern include the back. The lesion(s) of concern is described as color, growing and having irregular edges. Risk factors do not include family history of skin cancer. The reports no exposure to [employer], well water or radiation. Aggravating factors include sun exposure. The does not report any relieving factors. Associated symptoms include scaly skin. The reports no fatigue or lymphadenopathy. Additional information: s/p I&D. obesity Risk factors inc lude family history of obesity and high fat diet. Associated conditions include hyperlipidemia and hypertension. Relieving factors include diet(s) and exercise. Associated symptoms include anxiety, fatigue and headache. Pertinent negatives include abdominal pain, acne, cold intolerance, constipation, depression, generalized weakness, hair loss, hirsutism, lethargy, low self-esteem or vision changes. skin lesion The patient pres ents with skin lesion that began gradually. The problem is severe and worsened. The lesion is reported to be recurrent. Area(s) of concern include the mid back. The lesion(s) of concern is described as pink color and growing. The patient has not been previously treated. The patient reports no prior history of skin cancer. Risk factors do not include family history of skin cancer. The reports no exposure to [employer], well water or radiation. Aggravating factors do not include clothing, lotions, movement, scratching or shaving. Symptoms are not relieved by antibiotic ointment. Associated symptoms include change in color of mole(s), erythema, lesion discharge and skin irritation. The reports no blistering, fatigue, itchy skin, non-healing sores or scaly skin. Obesity Associated condi tions include hyperlipidemia and insulin resistance. Relieving factors include diet(s) and exercise. Pertinent negatives include abdominal pain, anxiety, cold intolerance, constipation, depression, fatigue, hair loss, headache, hirsutism or vision changes. obesity Risk factors inc lude high fat diet. Associated conditions include hyperlipidemia and hypertension. Relieving factors include diet(s) and exercise. Associated symptoms include fatigue. Pertinent negatives include abdominal pain, anxiety, cold intolerance, constipation, depression, hair loss, headache, hirsutism, lethargy, low self-esteem or vision changes. Additional information: Attached review of symptoms, measurements report, medication status report reviewed. hypertension Risk factors inc lude male gender. Associated symptoms include fatigue. Pertinent negatives include chest pain, claudication, diaphoresis, dyspnea, headache, hematuria, irregular heartbeat/palpitations, nausea and vomiting. Additional information: Attached review of symptoms, measurements report, medication status report reviewed. obesity (comments) This is very pleasant 44 year old new patient here today for initial bariatric consultation for weight loss. Symptoms and co-morbidities were reviewed and discussed. For details, see health questionnaire. He first started dieting at age unknown. His approximate weight at age 20 was 145. Over the past five years, her weight has ranged from 170 to 272 pounds. She denies trying any of the following weight loss programs: Weight Watchers, Phentermine, Becky Tyler, Optifast/Medifast, O.A or Tops, and Meridia, Xenica Nutrisystem, Fen/Phen or Redux, and OTC diet aids. He has however tried, Atkins Diet. Most success was with Atkins Diet with 30 pounds weight loss. He does eat sweets, occasionally, pasta/bread weekly, and does snack between meals, chips. Other beverages consumed daily: water, and energy drinks. He denies binge eating. Mr. Geiger does have family history of obesity. Other medical illnesses include, Obesity. He does not have any physical limitations. Her present life stressors are: being unemployed and children. His present support system is, family, and [employer]. obesity Risk factors inc lude high fat diet and sedentary lifestyle. Associated conditions include hyperlipidemia, hypertension, sleep apnea, and . Aggravating factors include high fat diet, lack of exercise and stress. The denies relieving factors. Symptoms are not relieved by diet(s) and exercise. Associated symptoms include anxiety, depression and headache. Pertinent negatives include abdominal pain, anhidrosis, anorexia, cold intolerance, constipation, fatigue, generalized weakness, hirsutism, hoarseness, lethargy, low self-esteem, striae or vision changes. Additional information: Stated age of 26. Weight was 220 pounds. Since then, his weight has been progressively increasing. Functional Status Date Functional Assessmen t No Information Instructions Date Instruction Additional Infor mation No Information Assessments Type Assessment Date No Information Mental Status Date Cognitive Assessment Orientation - [place] ed to time, place, person, situation. Patient Care Teams Name Effective Dates (start - stop) Status Members No Information
--- OUTSIDE RECORDS SUMMARY | 2024-07-14 17:00 | XMS_ITS | Encounter Summary ---
Author Organization [facility] Address [address] [place] [address] Care Team Providers Care Boilermaker Name Role Phone Alfonso Cortez MD Primary Care Provider Encounter Details Date Type Department Care Team (Late st Contact Info) Description 07/30/2021 Lab Requisition [facility] [address] [place] [id number] Brady Shay MD [address] [place] [address] Social History Tobacco Use Types Packs/Day Years Used Date Smoking Tobacco: Never Assessed Sex and Gender Information Value Date Recorded Sex Assigned at Not on file Gender Identity Not on file Sexual Orientation Not on file documented as of this encounter Plan of Treatment Not on file documented as of this encounter Procedures Procedure Name Priority Date/Time Associated Diagnosis Comments DERMATOPATHOLOGY Routine 07/30/2021 12:0 0 AM AUDIO VISUAL ENGINEER documented in this encounter Results * DERMATOPATHOLOGY (07/30/2021 12:00 AM AUDIO VISUAL ENGINEER) Case Report Dermatopathology Report Case: [id number] Authorizing Provider: Brady Shay MD Collected: 07/30/2021 12:00 AM Ordering Location: [facility] Lab Received: 07/30/2021 02:49 PM Pathologist: Sugey Carrillo MD Specimen: Skin, frontal scalp 4:42 PM T DERMATOPATHOLOGY LABORATORY Amended Report Clerical error in the laboratory at [facility], change in diagnosis from malignant melanoma, to basal cell nodular type. Clinician notified. 4:42 PM T DERMATOPATHOLOGY LABORATORY Final Diagnosis Specimen A. SKIN, frontal scalp: BASAL CELL CARCINOMA, NODULAR TYPE (C44.41) 4:42 PM T DERMATOPATHOLOGY LABORATORY Amendment electronically signed by Sugey Carrillo MD on 10/15/2021 at 4:42 PM Clinical History AK vs. BCC vs. SCC Path# [id number] 4:42 PM T DERMATOPATHOLOGY LABORATORY Gross Description Specimen A: Received is one formalin filled container labeled with the patient's name and designated frontal scalp. The specimen consists of a shave biopsy measuring [id number]. Jar 0. 4:42 PM T DERMATOPATHOLOGY LABORATORY Microscopic Description Specimen A. SKIN, frontal scalp: Within the dermis there are aggregates of basaloid cells with a high nuclear to cytoplasmic ratio and peripheral palisading. 4:42 PM T DERMATOPATHOLOGY LABORATORY Disclaimer An external and internal positive and negative controls are appropriate for the histochemical, immunohistochemical and immunofluorescence stain(s) in this case (if any), except where stated explicitly. The performance characteristics of the stain(s) cited in this report were developed and its performance characteristic determined by the Dermatopathology Laboratory at [facility], directed by Dr. Los Ramos. These tests need not be, and therefore are not, approved by the [place] Food and Drug Administration. The tests are used for clinical purposes. Billing Codes Specimen Charges Stain Charges 4:42 PM CDT DERMATOPATHOLOGY LABORATORY Embedded Images 4:42 PM CDT DERMATOPATHOLOGY LABORATORY Pathology/Cytolog y TISSUE SPECIMEN FROM SKIN / Unknown 07/30/2021 07/30/2021 2:49 PM AUDIO VISUAL ENGINEER Brady Shay MD LAB - PATHOLOGY/CYTO LOGY ORDERABLES DERMATOPATHOLOGY LABORATORY [facility] - Department of Dermatology [facility] [address] [place] [address], [address] [phone] documented in this encounter Visit Diagnoses Not on filedocumented in this encounter Care Teams Boilermaker Relationship Specialty Start Date End Date Alfonso Cortez MD [address] [place] [id number] PCP - General Internal Medicine 08/09/21 documented as of this encounter
--- OUTSIDE RECORDS SUMMARY | 2024-07-14 17:00 | XMS_ITS | Clinical Summary ---
Author Organization [facility] Address [address] [place] [id number] Care Team Providers Care Carbon Coater Machine Operator Name Role Phone Alfonso Cortez MD Primary Care Provider [phone] Social History Tobacco Use Types Packs/Day Years Used Date Smoking Tobacco: Never Assessed Sex and Gender Information Value Date Recorded Sex Assigned at Not on file Legal Sex Male 5:07 PM CDT Gender Identity Not on file Sexual Orientation Not on file Plan of Treatment Health Maintenance Due Date Last Done Comments Colorectal Cancer Screening Colonoscopy (10 Years) 1972 Annual Physical 10/20/1975 Hepatitis C 1990 DTaP, Tdap and Td Vaccines ( 1 - Tdap) 10/20/1991 Hepatitis B Vaccines (1 of 3 - 19+ 3-dose series) 10/20/1991 Zoster Vaccines (1 of 2) 2022 COVID-19 Vaccine (3 - 2023-2 5 season) 2024 03/22/2021, 07/28/2020 Influenza Adult (#1) 2024 Meningococcal B Vaccine Aged Out No l onger eligible based on patient's age to complete this topic Meningococcal Vaccine Aged Out No jos solo eligible based on patient's age to complete this topic Pneumococcal Vaccine: Pediatrics (0 to 5 Years) and At-Risk Patients (6 to 64 Years) Aged Out No longer eligible b ased on patient's age to complete this topic RSV Immunizations Under 20 Months Aged Out No longer eligible b ased on patient's age to complete this topic Insurance [facility] Care Teams Carbon Coater Machine Operator Relationship Specialty Start Date End Date Alfonso Cortez MD [address] [place] [id number] PCP - General INTERNAL MEDICINE 08/11/21
--- OUTSIDE RECORDS SUMMARY | 2024-07-14 17:00 | XMS_ITS | Referral Summary ---
Author Organization [facility] Address [address] [address] Care Team Providers Care Chief Service Observer Name Role Phone Alfonso Cortez MD Primary Care Provider [phone] Source Comments [facility],non-owned Affiliates and Associated Physician Practices is amultiple site organization consisting of ambulatory clinics and hospital sitesin [place], [place], [place] and [place]. This disclosure is being madepursuant to the Care Everywhere program and may not contain all information available regarding this patient. Last updated 18.[facility] Allergies Active Allergy Reactions Criticality Noted Date [...] Basal cell carcinoma (BCC) of scalp 08/09/2021 Social History Tobacco Use Types Packs/Day Years [...] 02/28/2022 9:50 AM CDT Plan of Treatment Not on file Procedures Procedure Name Priority Date/Time Associated Diagnosis [...] Resulting Agency Comment [facility] [address] [facility] [phone] Ramni Mcgowan MD LAB - CHEMISTRY RACHANA [facility] INSURANCE BILL [address] [place] [address] from Last 3 Months or Most Recently Relevant to Health Maintenance Care Teams Chief Service Observer Relationship Specialty Start Date End Date Alfonso Cortez MD [address] [place] [id number] PCP - General Internal Medicine 08/09/21
--- OUTSIDE RECORDS SUMMARY | 2024-07-14 17:00 | XMS_ITS | Patient Health Summary ---
Author Organization [facility] Address [address] [place] [address] Care Team Providers Care Behavioral Geneticist Name Role Phone Alfonso Cortez MD Primary Care Provider [phone] Note from [facility],non-owned Affiliates and Associated Physician Practices is amultiple site organization consisting of ambulatory clinics and hospital sitesin [place], [place], [place] and [place]. This disclosure is being madepursuant to the Care Everywhere program and may not contain all information available regarding this patient. Last updated 18.[facility] Allergies * Penicillins(Anaphylaxis) -High Criticality * Sulfa Drugs(Anaphylaxis,Rash) -High Criticality Medications * Be aware that medications may not be up to date on this document. Alwaysverify current medications with the patient. * amLODIPine (NORVASC) 5 MG tablet(Started 02/24/2021) Take 5 mg by mouth once daily * clotrimazole-betamethasone (LOTRISONE) 1-0.05 % cream(Started 02/24/2021) APPLY TOPICALLY TO THE AFFECTED AREA TWICE DAILY * olmesartan-hydroCHLOROthiazide (BENICAR HCT) 20-12.5 MG tablet(Started 02/24/2021) Take 1 tablet by mouth once daily * traZODone (DESYREL) 100 MG tablet(Started 02/24/2021) Take 100 mg by mouth at bedtime * baclofen (LIORESAL) 10 MG tablet(Started 12/25/2020) TAKE 1 TABLET BY MOUTH THREE TIMES DAILY FOR SPASMS * metroNIDAZOLE (FLAGYL) 500 MG tablet(Started 01/08/2021) Take 500 mg by mouth 3 times daily For 7 days. * predniSONE (DELTASONE) 10 MG tablet(Started 12/25/2020) * traMADol (ULTRAM) 50 MG tablet(Started 12/25/2020) TAKE 1 TABLET BY MOUTH THREE TIMES DAILY NEEDED FOR SEVERE PAIN Active Problems Problem Noted Date Diagnosed Date [...] Mass Index 44.62 02/28/2022 9:50 AM CDT Procedures * PATHOLOGY/CYTOLOGY REPORT ORDER(Performed 08/18/2021) * PATHOLOGY TISSUE EXAM (STL)(Performed 08/13/2021) Performed for Melanoma of scalp (HCC) * NM LYMPHOSCINTIGRAPHY(Performed 08/13/2021) Performed for Melanoma of scalp (HCC) * EKG 12-LEAD(Performed 08/09/2021) Performed for Malignant melanoma of skin of scalp and neck (HCC) * XR CHEST 2VW(Performed 08/09/2021) Performed for Pre-op testing * COMPREHENSIVE METABOLIC PANEL(Performed 08/09/2021) * CBC W AUTO DIFFERENTIAL(Performed 08/09/2021) * DERMATOPATHOLOGY(Performed 07/30/2021) Results * PATHOLOGY/CYTOLOGY REPORT ORDER (08/18/2021 12:02 AM CDT) Narrative 08/18/2021 12:02 AM CDT Ordered by an unspecified provider. Scanned Document LAB - PATHOLOGY/CYTO LOGY ORDERABLES * PATHOLOGY TISSUE EXAM (STL) (08/13/2021 1:15 PM CDT) Case Report Surgical Pathology Report Case: [id number] Authorizing Provider: Ramin Mcgowan MD Collected: 08/13/2021 01:15 PM Ordering Location: [facility] Received: 08/16/2021 10:27 AM Pathologist: Neyda Mak MD Specimens: A) - [place] Lymph Node, RT stitch at hot spot B) - [place] Lymph Node, LEFT stitch at hot spot C) - [place] Lymph Node D) - Lesion, frontal scalp @12 08/18/2021 8:38 AM CDT [facility] Final Diagnosis A. Right neck sentinel lymph node, excision: - No evidence of malignancy,0/1 B. Left neck sentinel node, excision: - No evidence of malignancy,0/1 C. Specimen labeled, additional node, left neck, excision: - No evidence of malignancy,0/1 D. Melanoma, frontal scalp, excision: - No evidence of residual melanoma - Basal cell carcinoma - Surgical margins free of malignancy - Previous biopsy site - chronic inflammation and foreign body granulomatous reaction GM/na 08/18/2021 8:38 AM CDT [facility] Gross Description Received in four formalin-filled containers labeled with the patient's name, Laith Geiger. Specimen A is further labeled, right neck sentinel node, stitch at hot spot, consists of one whitish-irwin nodular tissue measuring 0.7 x 0.4 x 0.3 cm. The specimen is bisectioned and entirely submitted in cassette A1. Specimen B is further labeled, left neck sentinel node, stitch at hot spot . It consists of one yellow soft tissue fragment measuring 1.5 x 1.0 x 0.4 cm. A stitch marking the hot spot is noted. The specimen is bisectioned and entirely submitted in cassette B1. Specimen C is further labeled, additional node, left neck . It consists of one irwin nodular soft tissue fragment measuring 0.6 x 0.5 x 0.4 cm. The specimen is bisectioned and entirely submitted in cassette C1. Specimen D is further labeled, melanoma. Frontal scalp, stitch at 12 o'clock . It consists of one circular-shaped skin excision specimen with a diameter of 4.5 cm and a depth of 0.9 cm. A stitch marking the 12 o'clock is identified. The 3 o'clock half is inked black and the 9 o'clock half is inked blue. A slight raised, whitish-irwin lesion is noted in the center of the specimen with irregular borders measuring 1.4 cm x 1.2 cm. The peripheral resection margin is widely clear, grossly. Serially sectioned from 12 to 6 o'clock, and provider service representative sections are submitted as per cassette summary. Cassette Summary: D1 - 12 o'clock and 6 o'clock tips (6 o'clock tip over-inked red) D2 - 3 o'clock and 9 o'clock tips (3 o'clock tip over-inked red) D3 and D4 - 12 o'clock half, bisectioned D5 and D6 - 12 o'clock half, bisectioned D7 and D8 - 6 o'clock half, bisectioned D9 and D10 - 6 o'clock half, bisectioned SD/na 08/18/2021 8:38 AM T [facility] Microscopic Description Examination of the right and left sentinel lymph nodes ,A1 and B2,reveal no evidence of malignancy. The accompanying Crandon-1 and S-100 stains on the sentinel lymph nodes are negative for malignancy. Examination of the additional lymph node, C1, reveals no evidence of malignancy.The node is surrounded_by parotid gland tissue and the node has intra-ruby parotid serous acini. Sections of the melanoma from the frontal scalp, D1-D10 reveals previous biopsy site characterized by intense chronic inflammatory infiltrate composed primarily of plasma cells and neovascularization. Crandon-1 reveals no evidence of isolated dermal melanocytes .There is basal cell carcinoma in the area of the previous biopsy site . The basal cell carcinoma has an overlying fibrinopurulent exudate and underlying granulomatous reaction. The basal cell carcinoma is approximately 1 cm in linear length and extends into the subcutaneous tissue. There is no evidence of residual melanoma. All of the surgical margins are free of atypia or malignancy. GM/na 08/18/2021 8:38 AM CDT [facility] Disclaimer All histochemical and/or immunohistochemical results are interpreted with controls that demonstrate appropriate staining reactions before reporting results. Note on use of immunocytochemistry reagents: This test was developed and its performance characteristic determined by [facility], Department of Laboratory Medicine. It has not been cleared or approved by the U.S. Food and Drug Administration (FDA). The FDA has determined that such clearance or approval is not necessary. The test is used for clinical purpose. It should not be regarded as investigational or for research. This laboratory is certified to perform high complexity testing. The performance characteristics of the IHC/DESTINI assays have been validated on formalin-fixed paraffin embedded tissues only. The assays have not been validated on decalcified tissues. Results should be interpreted with caution. 08/18/2021 8:38 AM CDT [facility] Embedded Images 08/18/2021 8:38 AM CDT [facility] Pathology/Cytology LESION SPECIMEN / Unknown 08/13/2021 1:15 PM CDT 08/16/2021 10:27 AM CDT Miscellaneous samples (specimen) SPECIMEN FROM SENTINEL LYMPH NODE / Unknown 08/13/2021 1:15 PM CDT 08/16/2021 10:27 AM CDT Miscellaneous samples (specimen) SPECIMEN FROM SENTINEL LYMPH NODE / Unknown 08/13/2021 1:15 PM CDT 08/16/2021 10:27 AM CDT Miscellaneous samples (specimen) LESION SPECIMEN / Unknown 08/13/2021 1:15 PM CDT 08/16/2021 10:27 AM CDT Ramin Mcgowan MD LAB - PATHOLOGY/CYTO LOGY ORDERABLES [facility] [address] [place] [address] * NM LYMPHOSCINTIGRAPHY (08/13/2021 10:50 AM CDT) Anatomical Region Laterality Modality Nuclear Digisoni cs 08/13/2021 11:2 4 AM CDT Impressions 08/13/2021 11:43 AM CDT Following administration of radiopharmaceutical, there is uptake in lymph nodes bilaterally in the region of the face, possibly within intraparotid lymph nodes. There is also more caudal uptake in what may be submandibular lymph nodes. Edited by Kavya Hutchinson on 08/13/2021 11:32 AM *Reading Radiologist: Caroline Smyth on 08/13/2021 at 11:43 AM Narrative 08/13/2021 11:43 AM CDT NUCLEAR MEDICINE LYMPHOSCINTIGRAPHY INDICATION: Malignant melanoma of frontal scalp. TECHNIQUE: 1 mCi technetium 99M labeled Lymphoseek was administered in [address] Mcgowan. Imaging of the head and neck was then performed. FINDINGS: Following administration of radiopharmaceutical, there is uptake within a sentinel node in the right lower face, possibly within an intraparotid lymph node. There is also faint uptake in 2 more caudally located lymph nodes, in the approximate submandibular region. On the left, there is uptake in a left facial lymph node, again possibly a parotid lymph node. Greatest uptake is more caudal in location, in the region of the mandible. Procedure Note Caroline Smyth MD - 08/13/2021 NUCLEAR MEDICINE LYMPHOSCINTIGRAPHY INDICATION: Malignant melanoma of frontal scalp. TECHNIQUE: 1 mCi technetium 99M labeled Lymphoseek was administered in [address] Mcgowan. Imaging of the head and neck was then performed. FINDINGS: Following administration of radiopharmaceutical, there is uptake within a sentinel node in the right lower face, possibly within an intraparotid lymph node. There is also faint uptake in 2 more caudally located lymph nodes, in the approximate submandibular region. On the left, there is uptake in a left facial lymph node, again possibly a parotid lymph node. Greatest uptake is more caudal in location, in the region of the mandible. IMPRESSION Following administration of radiopharmaceutical, there is uptake in lymph nodes bilaterally in the region of the face, possibly within intraparotid lymph nodes. There is also more caudal uptake in what may be submandibular lymph nodes. Edited by Kavya Hutchinson on 08/13/2021 11:32 AM *Reading Radiologist: Caroline Smyth on 08/13/2021 at 11:43 AM Ramin Mcgowan MD NM ORDERABLES * EKG 12-LEAD (08/09/2021 10:51 AM CDT) Ventricular Rate 79 BPM [facility] Atrial Rate 79 BPM [facility] P-R Interval 148 ms [facility] QRS Duration ms 86 ms [facility] Q-T Interval ms 398 ms [facility] QTC Calculation (Bezet) 456 ms [facility] Calculated P [place] 56 degrees [facility] Calculated R [place] 48 degrees [facility] Calculated T [place] -3 degrees [facility] Interpretation EKG Normal sinus rhythm Borderline 0.[address]-depression in inferior/ anterolateral leads. Consider ischemia. Abnormal ECG No previous ECGs available Confirmed by Juan Francisco Hernandez () on 08/09/2021 11:07:40 AM [facility] MUSE 08/09/2021 10:5 1 AM CDT 08/09/2021 11:07 AM CDT Ramin Mcgowan MD ECG ORDERABLES [facility] * XR CHEST 2VW (08/09/2021 10:46 AM CDT) Anatomical Region Laterality Modality Chest Radiographic Tonya ging 08/09/2021 12:5 5 PM CDT Impressions 08/09/2021 12:56 PM CDT No acute disease. *Reading Radiologist: Lucas Longoria on 08/09/2021 at 12:56 PM Narrative 08/09/2021 12:56 PM CDT Chest Two Views History: Preprocedural examination. Occasional cough. COMPARISON: None. FINDINGS: The lungs are clear. No pleural effusion or pneumothorax seen. The cardiac silhouette is within normal limits. Procedure Note Lucas Longoria MD - 08/09/2021 Chest Two Views History: Preprocedural examination. Occasional cough. COMPARISON: None. FINDINGS: The lungs are clear. No pleural effusion or pneumothorax seen. The cardiac silhouette is within normal limits. IMPRESSION No acute disease. *Reading Radiologist: Lucas Longoria on 08/09/2021 at 12:56 PM Ramin Mcgowan MD DIAGNOSTIC IMAGING O RDERABLES * CBC W AUTO DIFFERENTIAL (08/09/2021 10:18 AM CDT) WBC 5.3 3.4 - 10.8 x10E3/uL [facility] INSURANCE BILL RBC 4.77 4.14 - 5.80 x10E6/uL [facility] INSURANCE BILL Hemoglobin 15.1 13.0 - 17.7 g/dL [facility] INSURANCE BILL Hematocrit 44.3 37.5 - 51.0 % [facility] INSURANCE BILL MCV 93 79 - 97 fL [facility] INSURANCE BILL MCH 31.7 26.6 - 33.0 pg [facility] INSURANCE BILL MCHC 34.1 31.5 - 35.7 g/dL [facility] INSURANCE BILL RDW 12.9 11.6 - 15.4 % [facility] INSURANCE BILL Platelet Count 254 150 - 450 x10E3/uL [facility] INSURANCE BILL Granulocytes % 62 Not Estab. % [facility] INSURANCE BILL Lymphocytes % 27 Not Estab. % [facility] INSURANCE BILL Monocytes % 8 Not Estab. % [facility] INSURANCE BILL Eosinophils % 3 Not Estab. % [facility] INSURANCE BILL Basophils % 0 Not Estab. % [facility] INSURANCE BILL Immature Cells NOT NEEDED [facility] INSURANCE BILL Comment:Ancillary determined the test is not needed. Granulocytes Absolute 3.3 1.4 - 7.0 x10E3/uL [facility] INSURANCE BILL Lymphocytes Absolute 1.4 0.7 - 3.1 x10E3/uL [facility] INSURANCE BILL Monocytes Absolute 0.4 0.1 - 0.9 x10E3/uL [facility] INSURANCE BILL Eosinophils Absolute 0.2 0.0 - 0.4 x10E3/uL [facility] INSURANCE BILL Basophils Absolute 0.0 0.0 - 0.2 x10E3/uL [facility] INSURANCE BILL Immature Granulocytes 0 Not Estab. % [facility] INSURANCE BILL Immature Granulocytes Absolute 0.0 0.0 - 0.1 x10E3/uL [facility] INSURANCE BILL nRBC NOT NEEDED [facility] INSURANCE BILL Comment:Ancillary determined the test is not needed. Comment Hematology NOT NEEDED [facility] INSURANCE BILL Comment:Ancillary determined the test is not needed. 08/09/2021 10:1 8 AM CDT 08/09/2021 Narrative Resulting Agency Comment Lab Testing performed at: [place] [id number] [facility] [id number] Ramin Mcgowan MD LAB - HEMATOLOGY ORD ERABLES [facility] INSURANCE BILL [address] [place] [address] * (ABNORMAL) COMPREHENSIVE METABOLIC PANEL (08/09/2021 10:18 [...] Resulting Agency Comment Lab Testing performed at: [place] [id number] [facility] [id number] Ramin Mcgowan MD LAB - CHEMISTRY RACHANA HARRIS [facility] INSURANCE BILL [address] [place] [address] * DERMATOPATHOLOGY (07/30/2021 12:00 AM PROPERTY APPRAISER) Case Report Dermatopathology Report Case: [id number] Authorizing Provider: Brady Shay MD Collected: 07/30/2021 12:00 AM Ordering Location: [facility] Derm[facility] Lab Received: 07/30/2021 02:49 PM Pathologist: Sugey Carrillo MD Specimen: Skin, frontal scalp 4:42 PM [facility] Amended Report Clerical error in the laboratory at [facility], change in diagnosis from malignant melanoma, to basal cell nodular type. Clinician notified. 4:42 PM T DERMATOPATHOLOGY LABORATORY Final Diagnosis Specimen A. SKIN, frontal scalp: BASAL CELL CARCINOMA, NODULAR TYPE (C44.41) 4:42 PM [facility] Amendment electronically signed by Sugey Carrillo MD on 10/15/2021 at 4:42 PM Clinical History AK vs. BCC vs. SCC Path# [id number] 4:42 PM [facility] Gross Description Specimen A: Received is one formalin filled container labeled with the patient's name and designated frontal scalp. The specimen consists of a shave biopsy measuring [id number]. Jar 0. 4:42 PM [facility] Microscopic Description Specimen A. SKIN, frontal scalp: Within the dermis there are aggregates of basaloid cells with a high nuclear to cytoplasmic ratio and peripheral palisading. 4:42 PM [facility] Disclaimer An external and internal positive and negative controls are appropriate for the histochemical, immunohistochemical and immunofluorescence stain(s) in this case (if any), except where stated explicitly. The performance characteristics of the stain(s) cited in this report were developed and its performance characteristic determined by the Dermatopathology Laboratory at [facility], directed by Dr. Los Ramos. These tests need not be, and therefore are not, approved by the [place] Food and Drug Administration. The tests are used for clinical purposes. Billing Codes Specimen Charges Stain Charges 2 4:42 PM CDT DERMATOPATHOLOGY LABORATORY Embedded Images 2 4:42 PM CDT DERMATOPATHOLOGY LABORATORY Pathology/Cytolog y TISSUE SPECIMEN FROM SKIN / Unknown 07/30/2021 07/30/2021 2:49 PM PROPERTY APPRAISER Brady Shay MD LAB - PATHOLOGY/CYTO LOGY ORDERABLES DERMATOPATHOLOGY LABORATORY [facility] - Department of Dermatology [facility] Medicine [address] [place] [address], [address] [phone] Care Teams Behavioral Geneticist Relationship Specialty Start Date End Date Alfonso Cortez MD [address] [place] [address] [place] [id number] PCP - General Internal Medicine 08/09/21
--- OUTSIDE RECORDS SUMMARY | 2024-07-14 17:02 | XMS_ITS | Continuity of Care Document ---
Author Organization [id number] [facility] Address [address] [place] [address] Phone Care Team Providers Care Saddle Stitcher Name Role Phone Evelyn DIETZ, Lanette Unavailable [...] OFFICE/OUTPT EM EST DETAILED/MOD ERATE 25 MINS [id number] - [employer], [address] [facility] [address], [place], [address], tel: [phone] [facility] Evie Beata 2 Obesity (chief complaint) Hypertensi on (chief complaint) Metabolic syndromeEssential (primary) hypertensionHyper glycemiaMixed hyperlipidemiaFat ty liverObstructive sleep apneaMixed disorder as reaction to stressElectrolyte and fluid disorderObesity, Class III, BMI 40-49.9 (morbid obesity)Dietary counseling and surveillanceExerc ise counselingEncount er for long-term (current) use of medicationsBody mass index (BMI) 40.0-44.9, adult 7 Evelyn Gama. [address] [facility] [address], [place], [place], [address]. [phone] Referring Provider: Lanette Carrillo, [address] [facility] [address], [place], [address] . tel:[phone] [id number] - [employer], [address] [facility] [address], [place], [address], tel: [phone] [facility] Evie Beata 2 No Information 7 Evelyn Gama. [address] [facility] [address], [place], [place], [address]. tel:[phone] OFFICE/OUTPT EM EST EXP PROB FOCUS/LOW 15 MINS [id number] - [place] [employer], [address], [place], [address], tel: [phone] P[facility] Evie Beata 2 Obesity (chief complaint) Hypertensi on (chief complaint) Metabolic syndromeRashEssen tial (primary) hypertensionHyper glycemiaMixed hyperlipidemiaFat ty liverObstructive sleep apneaPlantar fasciitis of right footMixed disorder as reaction to stressElectrolyte and fluid disorderObesity, Class III, BMI 40-49.9 (morbid obesity)Body mass index (BMI) 40.0-44.9, adultDietary counseling and surveillanceExerc ise counselingEncount er for long-term current use of medication Evelyn Gama. [address] [address], [place], [place], [id number]. [phone] Referring Provider: Lanette Carrillo, [address] [address], [place], [address] . tel:[phone] OFFICE/OUTPT EM EST DETAILED/MOD ERATE 25 MINS [id number] - [employer] [facility] [employer], [address], [place], [address], tel: [phone] PMS Evie Beata 2 Obesity (chief complaint) Hypertensi on (chief complaint) Body mass index (BMI) 40.0-44.9, adultDietary counseling and surveillanceElect rolyte and fluid disorderEssential (primary) hypertensionExerc ise counselingFatty liverHyperglycemi aMetabolic syndromeMixed disorder as reaction to stressMixed hyperlipidemiaObe sity, Class III, BMI 40-49.9 (morbid obesity)Obstructi ve sleep apneaPlantar fasciitis of right footEncounter for long-term current use of medicationRash 6 Evelyn Gama. [address] [facility] [address], [place], [place], [address]. tel:[phone] Referring Provider: Lanette Carrillo, [address], [place], [address] . tel:[phone] OFFICE/OUTPT EM EST DETAILED/MOD ERATE 25 MINS [id number] - [facility], [address], [place], [address], tel: [phone] [facility] Evie Beata 2 Obesity (chief complaint) Dietary counseling and surveillanceElect rolyte and fluid disorderEssential (primary) hypertensionExerc ise counselingFatty liverHyperglycemi aMetabolic syndromeMixed disorder as reaction to stressMixed hyperlipidemiaObs tructive sleep apneaOther watermelon inspector (current) drug therapyBody mass index (BMI) 40.0-44.9, adultPlantar fasciitis of right footObesity, Class III, BMI 40-49.9 (morbid obesity)Influenza vaccination administered at current visit 6 Evelyn Gama. [address] [address], [place], [place], [address]. tel:[phone] Referring Provider: Lanette Carrillo, [address] [address], [place], [address] . tel:[phone] OFFICE/OUTPT EM EST DETAILED/MOD ERATE 25 MINS [id number] - [facility] [employer] [address], [place], [address], tel: [phone] [facility] Evie Beata 2 Obesity (chief complaint) hypertensi on (chief complaint) Body mass index (BMI) 38.0-38.9, adultMetabolic syndromeFatty liverEssential hypertensionMixed hyperlipidemiaObs tructive sleep apneaElectrolyte and fluid disorderDietary counseling and surveillanceExerc ise counseling 6 Evelyn Gama. [address] [facility] [address], [place], [place], [address]. [phone] Referring Provider: Lanette Carrillo, [address] [facility] [address], [place], [address] . tel:[phone] OFFICE/OUTPT EM EST DETAILED/MOD ERATE 25 MINS [id number] - [employer] [facility] [employer], [address], [place], [address], [place] tel:[phone] PMS Evie Beata 2 Obesity (chief complaint) hypertensi on (chief complaint) Body mass index (BMI) 39.0-39.9, adultMetabolic disorderHyperglyc emiaFatty liverMixed hyperlipidemiaEss ential (primary) hypertensionObesi ty, Class II, BMI 35.0-39.9, with comorbidity (see actual BMI)Dietary counselingExercis e counselingElectro lyte and fluid disorder 9-201 6 Leloshy Lanette. [address] [facility] [address], [place], [place], [address]. tel:[phone] Referring Provider: Lanette Carrillo, [facility] [address] [address], [place], [address] . tel:[phone] OFFICE/OUTPT EM EST EXP PROB FOCUS/LOW 15 MINS [id number] - [employer], [address], [place], [address], [phone] PMS Evie Beata 2 skin lesion (chief complaint) Cutaneous abscess of back excluding buttocksCelluliti s of back except buttockBody mass index (BMI) 39.0-39.9, adult -201 6 [employer] Marre[employer]. [address] [facility] [address], [place], [place], [address]. tel:[phone] Referring Provider: Lanette Carrillo, [address] [facility] [address], [place], [address] . tel:[phone] OFFICE/OUTPT EM EST DETAILED/MOD ERATE 25 MINS [id number] - [employer] [facility], [address], [place], [address], [place] [phone] PMS Evie Beata 2 obesity (chief complaint) skin lesion (chief complaint) Mixed hyperlipidemiaFat ty liver disease, nonalcoholicOther disorders of electrolyte and fluid balance, not elsewhere classifiedObesity (BMI 35.0-39.9 without comorbidity)Dieta ry counseling and surveillanceExerc ise counselingBody mass index (BMI) 39.0-39.9, adultHyperglycemi aMetabolic syndromeCutaneous abscess of back excluding buttocks 6 Evelyn Gama. [address] [facility] [address], [place], [place], [address]. [phone] Referring Provider: Lanette Carrillo, [address] [facility] [address], [place], [address] . tel:[phone] OFFICE/OUTPT EM EST DETAILED/MOD ERATE 25 MINS [id number] - [employer] [facility] [employer], [address] [facility] [address], [place], [address], [place] tel: [phone] PMS Evie Beata 2 Obesity (chief complaint) Insulin resistanceDietary surveillance and counselingExercis e counselingFatty liver disease, nonalcoholicMetab olic disorderMixed hyperlipidemiaOth disorders of electrolyte and fluid balance, NECBody mass index (BMI) 39.0-39.9, adultObesity, Class II, BMI 35-39.9 6 Clarence Ramirez. [address] [facility] [address], [place], [place], [address]. tel:[phone] Referring Provider: Ashley Curran, [address] [facility] [address], [place], [address] . tel:[phone] OFFICE/OUTPT EM EST DETAILED/MOD ERATE 25 MINS [id number] - [employer], [address] [facility] [address], [place], [address], [place] tel: [phone] PMS Evie Beata 2 obesity (chief complaint) hypertensi on (chief complaint) Body mass index (BMI) 40.0-44.9, adultMetabolic syndromeEssential (primary) hypertensionMixed hyperlipidemiaAbn ormal finding on EKGMixed disorder as reaction to stressElectrolyte and fluid disorderObesity, Class III, BMI 40-49.9 (morbid obesity)Dietary counseling and surveillanceExerc ise counselingFatty liver 6 Evelyn Marrerosohail. [address] [address], [place], [place], [address]. [phone] Referring Provider: Lanette Carrillo, [facility] [address] [address], [place], [address] . tel:[phone] [id number] - [facility] [employer] [address], [address], tel: [phone] [facility] Cardiology No Information 6 Bishnu Zavala. [address] [facility], [address], [place], [place], [address]. [phone] Referring Provider: Lanette Carrillo, [facility] [address] [address], [place], [address] . tel:[phone] OFFICE/OUTPT CONSULT EM COMPREH/HIGH 80 MINS [id number] - [place] [employer] [facility], [address] [address], [place], [address], [place] tel: [phone] [facility] Evie Beata 2 obesity (chief complaint) Body mass index (BMI) 40.0-44.9, adultElectrolyte and fluid disorderObesity, Class III, BMI 40-49.9 (morbid obesity)Dietary counseling and surveillanceExerc ise counselingOther senior care (current) drug therapyMetabolic syndromeEssential hypertensionMixed hyperlipidemiaAbn ormal finding on EKGObstructive sleep apneaMixed disorder as reaction to stress 6 Desiraerocky Lanette. [address] [address], [place], [place], [address]. tel:[phone] Referring Provider: Ashley Curran, [facility] [address] [address], [place], [address] . tel:[phone] Family History Family Member Type Diagnosis Age [...] Record Payers Payer name Insurance type Covered green party ID Authoriza tion(s) [facility] CI [id number] [facility] CI [id number] Social History Type Description Quantity Date Captured [...] weight loss programs: Weight Watchers, Phentermine, Becky Tlyer, Optifast/Medifast, O.A or Tops, and Meridia, Xenica [...] His present support system is, family, and Quaker. obesity Risk factors inc lude high fat [...] Mental Status Date Cognitive Assessment Orientation - [place] ed to time, place, person, situation. Patient Care Teams Name Effective Dates (start - stop) Status Members No Information
[2024-07-14 17:14] VITALS: BP 144/81; PULSE 77; RESP 18; TEMP 36.2; O2SAT 97
--- NOTE | 2024-07-14 17:23 | ED_ITS ---
HPI - URI/Sore Throat General Chief Complaint: Upper Respiratory Infection Stated Complaint: sinus irritation Time Seen by Provider: 07/14/24 17:23 Source: patient and RN notes reviewed Mode of arrival: ambulatory Limitations: no limitations History of Present Illness HPI Narrative: [age] year old male presented for complaint of cough, nasal congestion, drainage and sinus pressure. States he had the symptoms that resolved 6 days ago then returned over the past few days. Using Mucinex for symptoms. Denies shortness of breath, wheezing nausea vomiting or diarrhea or lethargy. MD elicited complaint: cough Related Data Home Medications ?Medication ?Instructions ?Recorded ?Confirmed ?Last Taken ?Type Blood flow 7 (nitric oxide) 1 tablet BYMOUTH DAILY 06/05/24 06/14/24 06/13/24 History Unknown Medication See Rx Instructions .Route .COMPLEX 06/05/24 06/05/24 Unknown History calcium phosphate,dibasic 77 1 tablet PO DAILY 06/05/24 06/14/24 06/13/24 History mg-vitamin D3 400 unit tablet tirzepatide (weight loss) 2.5 2.5 mg subcut WEEKLY 06/05/24 06/05/24 04/20/24 History mg/0.5 mL subcutaneous pen injector Allergies Allergy/AdvReac Type Severity Reaction Status Date / Time amoxicillin (From Amoxil) Allergy Unknown shortness Verified 07/14/24 17:16 of breath Penicillins Allergy Unknown lung Verified 07/14/24 17:16 swelling levofloxacin (From Levaquin) Allergy Unknown Verified 07/14/24 17:16 Review of Systems Review of Systems: per HPI COUNT INCLUDES THE [facility] Past Medical History Medical History Colon cancer screening Hypertension Dyslipidemia Insomnia Surgical History Surgical History History of skin surgery (2021) front of head; misdiagnosed with melanoma Family History Family History Father Alcoholism Hypertension Mother Depression Diabetes mellitus Hypertension Sibling Diabetes mellitus Alcoholism Hypertension Depression Grandparent Heart disease Hypertension Social History Social History Social History: 03/25/24 very confident with medical forms Smoking status: Never smoker Alcohol intake: current Drinks per week: 7 Alcohol use details: bourbon/wine Substance use: never Substance use type: does not use Do You Feel Safe in your Home?: Yes Lack of Transportation: No Lack of Food: Never True Current Housing: I Have Housing Concerned About Future Housing: No Difficulty Paying Gas/Electric Bills: No Difficulty Paying for Meds: No Currently Unemployed: No Education: High School Diploma/GED Difficulty w/ Childcare or Family Care: No Living arrangements: with family Occupation/Education: occupation 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 Nasal congestion. TM pearly morse with dull light reflex bilaterally; no tragal tenderness. Oropharynx erythematous without lesions or exudate, no drooling, no hoarseness, no trismus, uvula midline. CHEST: Clear to auscultation, breath sounds equal. No wheezing, rhonchi, rales, or stridor. No respiratory distress, speaks in full sentences. HEART: Regular rate and rhythm. No murmur heard. SKIN: Warm, dry, no rash. NEURO: Alert and oriented x3. PSYCH: Normal mood and affect Course Course Emergency Course: Patient is aware of diagnosis, understands and agrees to treatment plan. Anticipatory guidance given. Patient agrees to follow-up as directed and is aware of reasons to seek care at the emergency department. Portions of this record may have been created with voice recognition software Level of Care: Express Care Visit Vital Signs Vital signs: Vital Signs Temperature 97.2 F L 07/14/24 17:14 Pulse Rate 77 07/14/24 17:14 Respiratory Rate 18 07/14/24 17:14 Blood Pressure 144/81 H 07/14/24 17:14 Pulse Oximetry 97 07/14/24 17:14 Oxygen Delivery Room Air 07/14/24 17:14 Temperature 97.2 F L 07/14/24 17:14 Pulse Rate 77 07/14/24 17:14 Respiratory Rate 18 07/14/24 17:14 Blood Pressure 144/81 H 07/14/24 17:14 Pulse Oximetry 97 07/14/24 17:14 Oxygen Delivery Room Air 07/14/24 17:14 reviewed MDM - URI/Sore Throat MDM Narrative Medical decision making narrative: Discussed physical exam findings consistent with sinusitis. Advised supportive measures and signs/symptoms to go to the ER. Pt is appropriate for outpt treatment and f/u. Differential Diagnosis Differential diagnosis: Likely upper respiratory infection, sinusitis and viral infection Discharge Plan Discharge Clinical Impression: Sinusitis Patient Disposition: Home, Self-Care Condition: Stable Instructions: Antibiotic Form, Rhinosinusitis (ED) Additional Instructions: Take antibiotic as directed Recommendations: Flonase spray and Zyrtec (or Claritin/Jocelin) over the counter Cough syrup may cause drowsiness; avoid driving or take it at night time. Tylenol 1000mg every 8 hours as needed for pain Rest, fluids, and increase humidity of the air at home. Follow up with your primary care provider in 1 week. Go to the ER for worsening symptoms or concerns. Patient Language: Salvadorean Prescriptions: New doxycycline hyclate 100 mg tablet 100 mg PO BID 7 Days Qty: 14 0RF No Action calcium phos,dibas-vitamin D3 77-400 mg-unit tablet 1 tablet PO DAILY tirzepatide (weight loss) 2.5 mg/0.5 mL pen injector 2.5 mg subcut WEEKLY Patient Comments: Pt reports being off TZ for 1.5 months Rx Instructions: for 4 weeks Testosterone injection See Rx Instructions .ROUTE .COMPLEX Patient Comments: Reports last testosterone therapy 3 months ago Rx Instructions: 1 injection monthly; Blood flow 7 (nitric oxide) 1 tablet BYMOUTH DAILY olmesartan-hydrochlorothiazide 20-12.5 mg tablet See Rx Instructions .ROUTE .COMPLEX Qty: 90 1RF Dose Instruction: TAKE 1 TABLET BY MOUTH DAILY Rx Instructions: TAKE 1 TABLET BY MOUTH DAILY amlodipine 5 mg tablet See Rx Instructions .ROUTE .COMPLEX Qty: 90 1RF Dose Instruction: TAKE 1 TABLET BY MOUTH DAILY Rx Instructions: TAKE 1 TABLET BY MOUTH DAILY Follow-up/Referrals: UNKNOWN,DOCTOR [Primary Care Provider] - Time of Disposition: 17:30
== END 2024-07-14 17:31 | disposition home or self-care (01) ==
PROVIDERS: Emergency Provider Nurse Practitioner Family
DX: J32.9 Chronic sinusitis, unspecified (principal); I10 Essential (primary) hypertension; E78.5 Hyperlipidemia, unspecified
CPT/HCPCS: 99213; G0463